=== PATIENT | male | born 1995 | race Hispanic/Latino ===

== ENCOUNTER 2017-01-06 22:28 | Emergency (ER) | payer SELFPAY ==
[~2017-01-06] VITALS: Ht 170.2 cm; Wt 50.9 kg
[2017-01-06 23:04] VITALS: BP 135/90; PULSE 58; RESP 14; O2SAT 98
[2017-01-06] MEDS ORDERED: 0.9% Sodium Chloride 1,000 ML IV ONE (23:46)
--- NOTE | 2017-01-06 23:46 | ED.REPORT ---
HPI-Abd Pain M Under 40 Date of Service Jan 06, 2017 ED Provider: Dr. Ricks Pt is a healthy 21 y/o male presenting to the ED c/o N/V/D onset 3 days ago. He last vomited and had diarrhea yesterday. He c/o associated mild upper abdominal pain, decreased appetite, fatigue. Pt denies fever, hematemesis, bloody stool. Nursing Notes Stated Complaint: STOMACH PAIN,NAUSEA,DIZZY Chief Complaint: Male Abdominal Pain Nursing Notes Reviewed: Yes Allergies: Coded Allergies: Penicillins (Verified Allergy, Unknown, 01/07/17) General Time Seen by MD: 23:45 Chief Complaint Other (nvd) Hx Obtained From: Patient Arrived By: Walk-in Sudden in Onset?: No Onset Occurred: 3 days ago Symptom Duration: Since onset Progression since Onset: Constant Location: : Abdomen upper Quality: Aching Severity: Current: Mild Severity: Maximum: Mild Similar Sx Previous: No Past Medical History Past Medical History Denies Past Surgical History None reported Smoking History Never Smoker Social History Alcohol Use: "Social" Drug Use: THC Ambulatory Status Independent Review of Systems Constitutional: Reports: Weakness - generalized, Denies: Chills, Fever Respiratory: Denies: Dyspnea on exertion Cardiovascular: Denies: Chest pain GI: Reports: Abdominal pain, Anorexia, Diarrhea, Nausea, Vomiting Male: Denies Dysuria, Denies Penile discharge Musculoskeletal: Denies: Back pain Complete sys rev & neg: except as marked. Physical Exam Initial Vital Signs Vital Signs (First) Date Time Temp Pulse Resp B/P Pulse Ox O2 Delivery O2 Flow Rate FiO2 01/06/17 23:04 36.9 58 14 135/90 98 Room Air Initial VS: Reviewed, Vital signs normal Head / Eyes: Atraumatic, Normocephalic ENT: Mucous membranes moist, Conjunctiva normal, No scleral icterus Neck: Supple, Full range of motion Extremities: Vascular intact, Neuro intact, No swelling Skin: Warm, Dry, No cyanosis Neurologic: Alert, Oriented, Nonfocal Psychiatric: Mood/affect normal, Behavior normal, Normal thought content General/Constitutional: Awake, Alert, No acute distress, Cooperative, Not toxic appearing Distress / Hydration: Positive: Dehydration moderate Very dark urine Respiratory / Chest: Breath sounds NL, Breath sounds = bilat, No respiratory distress, No rales, No rhonchi, No wheezing Cardiovascular: Heart rate NL, Regular rhythm, Heart sounds NL, No murmurs Abdomen: Atraumatic, Soft, Non-tender, No guarding, No rebound, No distention, No palpable mass Back: Full range of motion, Painless range of motion Interpretation & Diagnostics Lab Results Interpretation Result Diagram: 01/06/17 2343 01/06/17 2343 Test 01/06/17 23:33 01/06/17 23:43 01/07/17 00:56 Hold Urine Received (Received) White Blood Count 7.2th/mm3 (3.8-10.1) Red Blood Count 5.33mil/mm3 (4.40-5.80) Hemoglobin 15.5g/dL (13.8-17.2) Hematocrit 43.1% (41.0-50.0) Mean Corpuscular Volume 80.9fL (81-100) Mean Corpuscular Hemoglobin 29.1pg (27.0-35.0) Mean Corpuscular Hemoglobin Concent 36.0% (32.0-37.0) Red Cell Distribution Width 12.5% (12.3-15.4) Platelet Count 220bil/L (150-400) Neutrophils (%) (Auto) 60.2% (40-74) Lymphocytes (%) (Auto) 29.6% (14-46) Monocytes (%) (Auto) 8.4% (4-12) Eosinophils (%) (Auto) 0.8% (0-5) Basophils (%) (Auto) 0.7% (0-3) Sodium Level 136mEq/L (134-144) Potassium Level 3.9mEq/L (3.5-5.2) Chloride Level 98mEq/L (97-108) Carbon Dioxide Level 22mmol/L (18-29) Blood Urea Nitrogen 25mg/dL (6-20) Creatinine 0.86mg/dL (0.76-1.27) Estimat Glomerular Filtration Rate 122mL/min (>59) Glucose Level 88mg/dL (60-99) Calcium Level 9.5mg/dL (8.5-10.1) Magnesium Level 2.0mg/dL (1.6-2.6) Total Bilirubin 1.3mg/dL (0.0-1.2) Aspartate Amino Transf (AST/SGOT) 19U/L (0-50) Alanine Aminotransferase (ALT/SGPT) 11U/L (0-44) Alkaline Phosphatase 56U/L (25-150) Total Protein 8.1g/dL (6.4-8.4) Albumin 4.9g/dL (3.4-5.0) Lipase 18U/L (13-60) Urine Color Dark yellow (YELLOW) Urine Appearance Clear (CLEAR,HAZY) Urine pH 6.0 (5.0-8.0) Urine Specific [place] 1.025 (1.003-1.035) Urine Protein Tracemg/dL (NEG,TRACE) Urine Glucose (UA) Negativemg/dL (NEGATIVE) Urine Ketones 40mg/dL (NEGATIVE) Urine Occult Blood Negative (NEGATIVE) Urine Nitrite Negative (NEGATIVE) Urine Bilirubin Small (NEGATIVE) Urine Ictotest Positive (Negative) Urine Urobilinogen Normalmg/dL (NORMAL) Urine Leukocyte Esterase Negative (NEGATIVE) Urine RBC 0-2/hpf (0-2) Urine WBC 0-5/hpf (0-5) Urine Epithelial Cells Few/hpf (NONE-MOD) Urine Crystals None seen (NONE SEEN) Urine Bacteria Few/hpf (NONE-FEW) Urine Hyaline Casts None/lpf (NONE) Urine Granular Casts None seen (NONE SEEN) Urine Waxy Casts None seen (NONE SEEN) Urine Red Blood Cell Casts None seen (NONE SEEN) Urine White Blood Cell Casts None seen (NONE SEEN) Urine Mucus Present (None Seen) Urine Trichomonas None seen (NONE SEEN) Urine Yeast None (NONE SEEN) Urinalysis Comment None Urine Culture Reflexed Not indicated Pulse Oximetry Interpretation Pulse Oximetry: Pulse Ox normal, On room air CBC Interpretation CBC normal BMP / CMP Interpretation BMP/CMP normal Re-Eval/Medical Decision Med Decision/Clinical Course Very benign physical examination. No point tenderness at McBurney's. Negative Rovsing sign. No Diaz's sign. I can deeply palpate all quadrants without any pain or tenderness. Emergent imaging not indicated. Laboratory work reassuring. Fluid hydration and antiemetics and he looked and felt much better. I suspect that he is a viral illness or food borne illness. We will discharge home with Zofran, clear liquid diet and close outpatient follow-up. Re-Evaluation/Progress : Time of Eval: 01:56 Patient Status: Condition improved, Moderate relief, Pain improved Re-Evaluation/Progress Note: Pt rechecked. Informed pt of plan for discharge. Pt understands and agrees with plan for discharge. F/U instructions and RTER warnings given. All questions addressed. Counseled Regarding: Diagnosis, Lab results, Need for follow-up, When/why to return to ED Patient Discharge & Departure Primary Impression: Abdominal pain Abdominal location: generalized Qualified Code: R10.84 - Generalized abdominal pain Additional Impressions: Diarrhea Diarrhea type: unspecified type Qualified Code: R19.7 - Diarrhea, unspecified Dehydration Disposition: Home Discharge Condition All VS Reviewed: Yes Condition: Stable Patient Instructions: Acute Abdominal Pain (ED), Gastroenteritis (ED) Additional Instructions: Labs showed that you are dehydrated otherwise are reassuring. Drink plenty of clear liquids for the next 24 hours. Take Zofran 1 every 8 hours as needed for nausea. Follow-up with a primary care doctor if symptoms persist. Return to the emergency department if you pain settles into your right lower abdomen, you have high fever, or for any new or worsening symptoms. Referrals: [facility] Scribe Attestation Portions of this note were transcribed by Hardeep Castro. I, Dr. Ricks personally performed the history, physical exam and medical decision-making; I reviewed and confirmed the accuracy of the information in the transcribed note. Janes Ricks DO Jan 06, 2017 23:46 HARDEEP CASTRO Jan 07, 2017 00:33
[2017-01-06 23:47] LABS: BASOPHILS % (AUTO) 0.7 % (0-3); EOSINOPHILS % (AUTO) 0.8 % (0-5); MONOCYTES % (AUTO) 8.4 % (4-12); Mean Corpuscular Hemoglobin 29.1 pg (27.0-35.0); Mean Corpuscular Volume 80.9 fL (81-100); NEUTROPHILS % (AUTO) 60.2 % (40-74); Platelet Count 220 bil/L (150-400)
[2017-01-07] MEDS ORDERED: 0.9% Sodium Chloride 1,000 ML IV SCH (00:55)
[2017-01-07 01:02] LABS: APPEARANCE,URINE CLEAR (CLEAR,HAZY); COLOR,URINE DARK YELLOW (YELLOW); OCCULT BLOOD,URINE NEGATIVE (NEGATIVE); UROBILINOGEN,URINE NORMAL (NORMAL)
[2017-01-07 01:03] LABS: ICTOTEST,URINE POSITIVE (Negative)
[2017-01-07] MEDS ORDERED: _Ondansetron ODT 4 mg Tablet PO PRN (01:55)
[2017-01-07 02:46] VITALS: BP 126/86; PULSE 67; RESP 16; O2SAT 97
== END 2017-01-07 02:42 | disposition home or self-care (01) ==
LOC: SED 22:28
DX: R10.10 Upper abdominal pain, unspecified (principal); R19.7 Diarrhea, unspecified; E86.0 Dehydration; Z88.0 Allergy status to penicillin
CPT/HCPCS: 36415; 80053; 81000; 83690; 83735; 85025; 96360; 99284; J7030